=== PATIENT | female | born 1955 | race Hispanic/Latino ===

== ENCOUNTER 2017-10-22 09:33 | Emergency (ER) | payer BC ==
[~2017-10-22] VITALS: Ht 157.5 cm; Wt 64.9 kg
[2017-10-22] MEDS ORDERED: AMOXICILLIN/CLAVULANATE K 875 MG TAB PO STA (10:23)
[2017-10-22] MEDS ORDERED: DEXAMETHASONE SOD PHOS 10 MG/1 ML VIAL INJ ONE (10:30)
[2017-10-22 11:10] VITALS: BP 158/97
[2017-10-22] MEDS ORDERED: KETOROLAC TROMETHAMINE 10 MG TAB PO ONE (12:00)
== END 2017-10-22 11:32 | disposition home or self-care (01) ==
LOC: ER 09:33
DX: R50.9 Fever, unspecified (principal); J03.90 Acute tonsillitis, unspecified
CPT/HCPCS: 99283; J1100

== ENCOUNTER → 2017-12-14 | Outpatient (CLI) | payer BC ==
--- NOTE | 2017-12-14 09:17 | Diagnostic Imaging Report ---
PROCEDURE: X-RAY CHEST, TWO VIEWS COMPARISON: None. INDICATIONS: CHRONIC COUGH FINDINGS: LUNGS: No consolidations or edema. PLEURA: No effusions or pneumothorax. HEART \T\ MEDIASTINUM: The heart is within normal size-limits. BONES \T\ SOFT TISSUES: No acute findings. 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 CONCLUSION: No acute thoracic abnormality. Ryan Branch D.O. Dictated by: Ryan Branch D.O. on 12/14/2017 at 9:18 Electronically approved by: Ryan Branch D.O. on 12/14/2017 at 9:18
== END ==
LOC: RAD 08:36
PROVIDERS: ATTEND Family Medicine
DX: R05 Cough (principal)
CPT/HCPCS: 71046

== ENCOUNTER 2019-11-01 08:09 | Emergency (ER) | payer BC, OTHER ==
[~2019-11-01] VITALS: Ht 157.5 cm; Wt 64.9 kg
--- OUTSIDE RECORDS SUMMARY | 2019-11-01 08:12 | XMS REPORT ---
[facility] Address Unknown Phone Unavailable Care Team Providers Care Assessment Counselor Name Role Phone STEPHEN LOPEZ Unavailable Unavailable Problems This patient has no known problems. Allergies, Adverse Reactions, Alerts This patient has no known allergies or adverse reactions. Medications This patient has no known medications. Results Test Description Test Time Test Comments Text Results Atomic Results Result Comments CHEST 2 VIEWS [place] [address] Patient Name: XAVIER SMITH MR #: [id number] : 1955 Age/Sex: 62/F Req #: [id number] Adm Physician: Ordered by: JOHN RAZA, STEPHEN Molina MD Report #: [id number] Location: [facility] Room/Bed: Procedure: [id number] DX/CHEST 2 VIEWS Exam Date: 12/14/17 Exam Time: 0843 REPORT STATUS: Signed PROCEDURE: X-RAY CHEST, TWO VIEWS COMPARISON: None. INDICATIONS: CHRONIC COUGH FINDINGS: LUNGS: No consolidations or edema. PLEURA: No effusions or pneumothorax. HEART T MEDIASTINUM: The heart is within normal size-limits. BONES T SOFT TISSUES: No acute findings. 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 CONCLUSION: No acute thoracic abnormality. Lino Branch D.O. Dictated by: Lino Branch D.O. on 12/14/2017 at 9:18 Electronically approved by: Lino Branch D.O. on 12/14/2017 at 9:18 Dictated By: LINO BRANCH DO 7 Transcribed By: LARRY on 12/14/17917 COPY TO: STEPHEN LOPEZ
[2019-11-01] MEDS ORDERED: SODIUM CHLORIDE 0.9% 1000ML 1,000 ML IV STA (08:25)
[2019-11-01] MEDS ORDERED: PANTOPRAZOLE 40 MG 10ML VIAL IV STA (08:25)
[2019-11-01 09:01] LABS: BASOPHILS % 0.4 % (0.0-1.0); EOSINOPHILS % 0.2 % (0.0-6.0); HEMATOCRIT 42.9 % (34.2-44.1); HEMOGLOBIN 14.6 g/dL (12.0-16.0); LYMPHOCYTES # (AUTO) 1.2 (1.0-3.2); LYMPHOCYTES % 25.7 % (18.0-39.1); MEAN CORPUSCULAR HEMOGLOBIN 31.2 pg (28-32); MEAN CORPUSCULAR VOLUME 91.7 fL (81-99); MONOCYTES # (AUTO) 0.4 (0.2-0.8); MONOCYTES % 8.1 % (4.4-11.3); NEUTROPHILS # (AUTO) 2.9 (2.1-6.9); NEUTROPHILS % 65.4 % (38.7-80.0); PLATELET COUNT 200 x10e3/uL (140-360); RED BLOOD COUNT 4.68 x10e6/uL (3.6-5.1); RED CELL DISTRIBUTION WIDTH 12.4 % (11.7-14.4)
[2019-11-01 09:13] LABS: INR 0.9; PROTHROMBIN TIME 12.7 seconds (11.9-14.5)
[2019-11-01 09:14] LABS: PARTIAL THROMBOPLASTIN TIME 29.3 seconds (23.8-35.5)
[2019-11-01 09:19] LABS: INFLUENZAE A&B ANTIGEN (RAPID) NEGATIVE (NEGATIVE)
[2019-11-01 09:20] LABS: ALBUMIN 3.9 g/dL (3.5-5.0); CALCIUM 9.6 mg/dL (8.4-10.2); CREATININE, SERUM 1.11 mg/dL (0.57-1.11); MAGNESIUM 1.9 MG/DL (1.3-2.1)
[2019-11-01 09:27] LABS: CLARITY,URINE CLEAR (CLEAR); COLOR,URINE ORANGE (YELLOW); CREATINE KINASE MB 2.1 ng/mL (0-5.0); LEUKOCYTE ESTERASE ,URINE NEGATIVE (NEGATIVE)
[2019-11-01 09:28] LABS: BILIRUBIN,URINE NEGATIVE (NEGATIVE); KETONES,URINE NEGATIVE (NEGATIVE); NITRITE,URINE NEGATIVE (NEGATIVE); PROTEIN,URINE DIPSTICK 1+ (NEGATIVE); URINE UROBILINOGEN 0.2 mg/dL (0.2 - 1)
--- NOTE | 2019-11-01 09:28 | Diagnostic Imaging Report ---
EXAMINATION: CHEST 2 VIEWS INDICATION: Cough COMPARISON: Chest radiograph 12/14/2017 FINDINGS: LINES/TUBES:None LUNGS:The lungs are well-inflated. No focal consolidation or pulmonary edema. PLEURA:No pleural effusion or pneumothorax. MEDIASTINUM:The cardiomediastinal silhouette appears normal in size and shape. BONES/SOFT TISSUES:No acute osseous injury. ABDOMEN:No free air under the diaphragm. IMPRESSION: No focal pneumonia or pulmonary edema. Signed by: Mica Junior MD on 11/01/2019 9:25 AM
[2019-11-01 09:29] LABS: BACTERIA,URINE RARE /HPF; EPITHELIAL CELLS,URINE FEW /LPF; WBC,URINE (MAN) 21-50 /HPF (0-5)
[2019-11-01 09:34] LABS: STREPTOCOCCUS GRP A ANTIGEN NEGATIVE (NEGATIVE)
[2019-11-01] MEDS ORDERED: CEFTRIAXONE SOD 1 GM/NS 50 ML 50 ML IV ONE (10:00)
[2019-11-01 10:15] VITALS: BP 165/91
== END 2019-11-01 10:56 | disposition home or self-care (01) ==
LOC: ER 08:09
DX: R05 Cough (principal); N30.91 Cystitis, unspecified with hematuria
CPT/HCPCS: 36415; 71046; 80053; 81001; 82550; 82553; 83518; 83735; 84484; 85025; 85610; 85730; 87070; 87086; 87400; 93005; 99284; C9113; J0696; J7030

== ENCOUNTER 2022-11-03 15:12 | Emergency (ER) | payer BC, OTHER ==
[~2022-11-03] VITALS: Ht 157.5 cm; Wt 64.9 kg
[2022-11-03] MEDS ORDERED: SODIUM CHLORIDE 0.9% 1000ML 1,000 ML IV ONE (15:30)
[2022-11-03 15:39] LABS: BASOPHILS % 0.2 % (0.0-1.0); EOSINOPHILS % 0.4 % (0.0-6.0); HEMATOCRIT 40.4 % (34.2-44.1); HEMOGLOBIN 13.6 g/dL (12.0-16.0); LYMPHOCYTES # (AUTO) 1.3 (1.0-3.2); LYMPHOCYTES % 26.4 % (18.0-39.1); MEAN CORPUSCULAR HEMOGLOBIN 30.9 pg (28-32); MEAN CORPUSCULAR HGB CONC 33.7 g/dL (31-35); MEAN CORPUSCULAR VOLUME 91.8 fL (81-99); MONOCYTES # (AUTO) 0.4 (0.2-0.8); MONOCYTES % 7.4 % (4.4-11.3); NEUTROPHILS # (AUTO) 3.3 (2.1-6.9); NEUTROPHILS % 65.4 % (38.7-80.0); PLATELET COUNT 172 x10e3/uL (140-360); RED CELL DISTRIBUTION WIDTH 11.9 % (11.7-14.4)
[2022-11-03 15:57] LABS: ALBUMIN 3.8 g/dL (3.5-5.0); ANION GAP 15.6 mmol/L (8-16); CALCIUM 9.5 mg/dL (8.4-10.2); CREATININE, SERUM 1.3 mg/dL (0.57-1.11); POTASSIUM 3.6 mmol/L (3.5-5.1)
[2022-11-03 17:02] VITALS: BP 133/76
== END 2022-11-03 18:12 | disposition home or self-care (01) ==
LOC: ER 15:14
DX: R53.1 Weakness (principal); R42 Dizziness and giddiness; E11.65 Type 2 diabetes mellitus with hyperglycemia; F41.9 Anxiety disorder, unspecified; I34.1 Nonrheumatic mitral (valve) prolapse; Z87.19 Personal history of other diseases of the digestive system
CPT/HCPCS: 36415; 71045; 80053; 84484; 85025; 93005; 99284; J7030

== ENCOUNTER → 2024-01-14 | Outpatient (REF) | payer MEDICARE ==
[~2024-01-14] MED LIST: CEFDINIR300 MG PO
== END ==
LOC: US 09:56
PROVIDERS: ATTEND Urology
DX: R31.21 Asymptomatic microscopic hematuria (principal)
CPT/HCPCS: 74018; 76770

== ENCOUNTER 2024-05-03 08:15 | Inpatient (IN) | payer MEDICARE ==
[2024-05-02 11:17] LABS: BASOPHILS % 0.3 % (0.0-1.0); EOSINOPHILS # (AUTO) 0.1 (0.0-0.4); EOSINOPHILS % 1.3 % (0.0-6.0); HEMATOCRIT 44.2 % (34.2-44.1); HEMOGLOBIN 14.4 g/dL (12.0-16.0); LYMPHOCYTES % 26.9 % (18.0-39.1); MEAN CORPUSCULAR HEMOGLOBIN 30.9 pg (28-32); MEAN CORPUSCULAR HGB CONC 32.6 g/dL (31-35); MEAN CORPUSCULAR VOLUME 94.8 fL (81-99); MONOCYTES # (AUTO) 0.4 (0.2-0.8); MONOCYTES % 10.1 % (4.4-11.3); NEUTROPHILS # (AUTO) 2.4 (2.1-6.9); NEUTROPHILS % 61.1 % (38.7-80.0); PLATELET COUNT 157 x10e3/uL (140-360); RED BLOOD COUNT 4.66 x10e6/uL (3.6-5.1); WHITE BLOOD COUNT 3.86 x10e3/uL (4.8-10.8)
[2024-05-02 11:49] LABS: ANION GAP 12.2 mmol/L (8-16); CALCIUM 9.8 mg/dL (8.4-10.2); CREATININE, SERUM 0.98 mg/dL (0.57-1.11); POTASSIUM 4.2 mmol/L (3.5-5.1)
[~2024-05-03] VITALS: Ht 157.5 cm; Wt 61.2 kg
[~2024-05-03 08:15] MED LIST changes: +METOPROLOL SUCC25 MG PO; +PRAVASTATIN SOD20 MG PO
[2024-05-03] MEDS ORDERED: METHYLENE BLUE 1% INJ 10 ML VIAL INJ ONE (10:02)
[2024-05-03] MEDS ORDERED: BUPIVACAINE HCL 0.5% INJ 30 ML VIAL INJ ONE (10:02)
[2024-05-03] MEDS ORDERED: LIDOCAINE 1% W/EPINEPHRINE 20 ML VIAL ONE (10:02)
[2024-05-03] MEDS ORDERED: BACITRACIN ZINC 15 GM OINT ONE (10:02)
[2024-05-03] MEDS ORDERED: GENTAMICIN SULFATE 40 MG/ML 2 ML VIAL ONE (10:02)
[2024-05-03] MEDS: GENTAMICIN 80MG/NS 100 ML 200 ML IV ONE (10:25)
[2024-05-03] MEDS: PIPERACILLIN/TAZOBACTAM 3.375 GM VIAL ONE (10:25)
[2024-05-03] MEDS: CLINDAMYCIN 600MG / 50ML 50 ML IV ONE (10:25)
[2024-05-03] MEDS: LACTATED RINGER'S 1,000 ML ONE (10:25)
[2024-05-03] MEDS ORDERED: DIPHENHYDRAMINE HCL 25 MG CAP PO PRN (11:15)
[2024-05-03] MEDS ORDERED: PHENAZOPYRIDINE HCL 100 MG TAB PO PRN (11:15)
[2024-05-03] MEDS ORDERED: ACETAMINOPHEN 1000 MG/100 ML IV PRN (11:15)
[2024-05-03] MEDS ORDERED: ONDANSETRON HCL INJ 2MG/ML 2ML 2 MG/ML VIAL IV PRN (11:15)
[2024-05-03] MEDS ORDERED: LIDOCAINE HCL 2% LOCAL INJ 5 ML SDV VIAL INJ ONE (12:12)
[2024-05-03] MEDS ORDERED: PROPOFOL IV EMULSION 10 MG/ML 20 ML VIAL ONE (12:12)
[2024-05-03] MEDS ORDERED: EPHEDRINE SULFATE INJ 50 MG/ML VIAL ONE (12:12)
[2024-05-03] MEDS ORDERED: ACETAMINOPHEN 1000 MG/100 ML IV ONE (12:12)
[2024-05-03] MEDS ORDERED: DEXAMETHASONE SOD PHOS INJ 4 MG/ML SDV ONE (12:12)
[2024-05-03] MEDS ORDERED: ONDANSETRON HCL INJ 2MG/ML 2ML 2 MG/ML VIAL ONE (12:12)
[2024-05-03] MEDS ORDERED: SEVOFLURANE INHAL SOLN 250 ML PEN BTL ONE (12:12)
[2024-05-03] MEDS ORDERED: FENTANYL CITRATE/PF 100MCG/2 ML INJ ONE (12:44)
[2024-05-03] MEDS ORDERED: MIDAZOLAM HCL 2 MG/2 ML VIAL ONE (12:44)
[2024-05-03 13:56] LABS: BASOPHILS % 0.2 % (0.0-1.0); EOSINOPHILS % 0.7 % (0.0-6.0); HEMATOCRIT 42.2 % (34.2-44.1); HEMOGLOBIN 13.3 g/dL (12.0-16.0); LYMPHOCYTES # (AUTO) 0.9 (1.0-3.2); LYMPHOCYTES % 20.9 % (18.0-39.1); MEAN CORPUSCULAR HEMOGLOBIN 30.4 pg (28-32); MEAN CORPUSCULAR HGB CONC 31.5 g/dL (31-35); MEAN CORPUSCULAR VOLUME 96.6 fL (81-99); MONOCYTES # (AUTO) 0.1 (0.2-0.8); MONOCYTES % 2.7 % (4.4-11.3); NEUTROPHILS # (AUTO) 3.3 (2.1-6.9); PLATELET COUNT 142 x10e3/uL (140-360); RED BLOOD COUNT 4.37 x10e6/uL (3.6-5.1); RED CELL DISTRIBUTION WIDTH 11.9 % (11.7-14.4); WHITE BLOOD COUNT 4.41 x10e3/uL (4.8-10.8)
[2024-05-03 14:06] LABS: ANION GAP 11.9 mmol/L (8-16); CREATININE, SERUM 0.92 mg/dL (0.57-1.11); POTASSIUM 3.9 mmol/L (3.5-5.1)
[2024-05-03 14:30] VITALS: BP 117/69; PULSE 57; RESP 18; TEMP 97.4; O2SAT 99
[2024-05-03 15:28] VITALS: PULSE 72; RESP 20; O2SAT 98
[2024-05-03 16:51] VITALS: BP 110/56; PULSE 61; RESP 17; TEMP 97.2; O2SAT 98
[2024-05-03] MEDS: D5.45%NS/KCL 20MEQ 1,000 ML IV SCH (16:52)
[2024-05-03] MEDS: ACETAMINOPHEN/CODEINE 300MG - 30MG TAB PO PRN (17:01)
[2024-05-03 20:00] VITALS: BP 98/49; PULSE 69; RESP 20; TEMP 97.5; O2SAT 99
[2024-05-03 20:45] VITALS: PULSE 72; RESP 8; O2SAT 96
[2024-05-04] VITALS (10 sets, daily range): BP systolic 98–112; BP diastolic 42–52; PULSE 56–74; RESP 18–19; TEMP 97.8–98.3; O2SAT 94–100
[2024-05-04 06:12] LABS: HEMATOCRIT 34.8 % (34.2-44.1); HEMOGLOBIN 11.1 g/dL (12.0-16.0); LYMPHOCYTES # (AUTO) 0.9 (1.0-3.2); MEAN CORPUSCULAR HEMOGLOBIN 30.5 pg (28-32); MEAN CORPUSCULAR HGB CONC 31.9 g/dL (31-35); MEAN CORPUSCULAR VOLUME 95.6 fL (81-99); MONOCYTES # (AUTO) 0.8 (0.2-0.8); MONOCYTES % 9.6 % (4.4-11.3); NEUTROPHILS # (AUTO) 6.7 (2.1-6.9); NEUTROPHILS % 79.2 % (38.7-80.0); PLATELET COUNT 150 x10e3/uL (140-360); RED BLOOD COUNT 3.64 x10e6/uL (3.6-5.1); RED CELL DISTRIBUTION WIDTH 11.8 % (11.7-14.4); WHITE BLOOD COUNT 8.47 x10e3/uL (4.8-10.8)
[2024-05-04 06:59] LABS: BLOOD UREA NITROGEN < 5 mg/dL (7-26); CREATININE, SERUM 0.86 mg/dL (0.57-1.11); EST GLOMERULAR FILTRATION RATE 74 ML/MIN (>=60); GLUCOSE 139 mg/dL (74-118)
[2024-05-04 07:11] LABS: BUN/CREATININE RATIO 6 (6-25)
[2024-05-04 08:55] LABS: CALCIUM 9.1 mg/dL (8.4-10.2); CHLORIDE 108 mmol/L (98-107); POTASSIUM 4.1 mmol/L (3.5-5.1); SODIUM 135 mmol/L (136-145)
[2024-05-04 10:24] LABS: CARBON DIOXIDE 20 mmol/L (22-29)
[2024-05-04 10:27] LABS: ANION GAP 11.1 mmol/L (8-16)
[2024-05-04] MEDS: SODIUM CHLORIDE 0.9% 1000ML 1,000 ML IV SCH (10:45)
[2024-05-04] MEDS: MELATONIN 5 MG TABLET PO SCH (21:25)
[2024-05-05] VITALS (10 sets, daily range): BP systolic 96–151; BP diastolic 46–83; PULSE 57–82; RESP 16–18; TEMP 97.7–98.9; O2SAT 97–100
[2024-05-05 05:55] LABS: BASOPHILS % 0.4 % (0.0-1.0); EOSINOPHILS # (AUTO) 0.1 (0.0-0.4); HEMATOCRIT 33.1 % (34.2-44.1); HEMOGLOBIN 10.8 g/dL (12.0-16.0); LYMPHOCYTES # (AUTO) 1.5 (1.0-3.2); LYMPHOCYTES % 29.8 % (18.0-39.1); MEAN CORPUSCULAR HEMOGLOBIN 31.5 pg (28-32); MEAN CORPUSCULAR HGB CONC 32.6 g/dL (31-35); MEAN CORPUSCULAR VOLUME 96.5 fL (81-99); MONOCYTES # (AUTO) 0.6 (0.2-0.8); MONOCYTES % 11.2 % (4.4-11.3); NEUTROPHILS # (AUTO) 2.9 (2.1-6.9); NEUTROPHILS % 57.2 % (38.7-80.0); PLATELET COUNT 141 x10e3/uL (140-360); RED BLOOD COUNT 3.43 x10e6/uL (3.6-5.1); RED CELL DISTRIBUTION WIDTH 12.6 % (11.7-14.4)
[2024-05-05 07:20] LABS: CREATININE, SERUM 0.99 mg/dL (0.57-1.11)
[2024-05-05] MEDS: METOPROLOL SUCCINATE 25 MG TAB XL PO SCH (09:21)
[2024-05-05 15:11] LABS: CALCIUM 8.9 mg/dL (8.4-10.2); POTASSIUM 4.6 mmol/L (3.5-5.1)
[2024-05-05 15:12] LABS: ANION GAP 12.6 mmol/L (8-16)
[2024-05-06] VITALS: BP 107/54; PULSE 56; RESP 16; TEMP 98.2; O2SAT 100
[2024-05-06 05:12] VITALS: BP 131/77; PULSE 67; RESP 18; TEMP 98.6; O2SAT 97
[2024-05-06 05:46] LABS: BASOPHILS % 0.4 % (0.0-1.0); EOSINOPHILS # (AUTO) 0.2 (0.0-0.4); EOSINOPHILS % 3.3 % (0.0-6.0); LYMPHOCYTES # (AUTO) 1.4 (1.0-3.2); LYMPHOCYTES % 30.2 % (18.0-39.1); MEAN CORPUSCULAR HEMOGLOBIN 31.2 pg (28-32); MEAN CORPUSCULAR HGB CONC 32.4 g/dL (31-35); MEAN CORPUSCULAR VOLUME 96.3 fL (81-99); MONOCYTES # (AUTO) 0.5 (0.2-0.8); MONOCYTES % 11.7 % (4.4-11.3); NEUTROPHILS # (AUTO) 2.5 (2.1-6.9); NEUTROPHILS % 54.2 % (38.7-80.0); PLATELET COUNT 144 x10e3/uL (140-360); RED BLOOD COUNT 3.53 x10e6/uL (3.6-5.1); RED CELL DISTRIBUTION WIDTH 12.4 % (11.7-14.4); WHITE BLOOD COUNT 4.53 x10e3/uL (4.8-10.8)
[2024-05-06 06:22] LABS: CALCIUM 10.5 mg/dL (8.4-10.2); CREATININE, SERUM 1.04 mg/dL (0.57-1.11)
[2024-05-06 06:38] VITALS: PULSE 72; RESP 20; O2SAT 98
[2024-05-06 07:25] LABS: POTASSIUM 4.9 mmol/L (3.5-5.1)
[2024-05-06 08:28] VITALS: BP 112/49; PULSE 54; RESP 18; TEMP 97.6; O2SAT 97
[2024-05-06 08:53] VITALS: BP 112/49; PULSE 54; RESP 18; TEMP 97.6; O2SAT 97
[2024-05-06 09:29] LABS: ANION GAP 11.9 mmol/L (8-16)
[2024-05-06 12:00] VITALS: BP 129/75; PULSE 63; RESP 20; TEMP 97.6; O2SAT 98
== END 2024-05-06 11:55 | disposition home or self-care (01) | DRG 748 ==
LOC: OR 08:15 → PACU V 11:14 → MED/SURG2 14:30
PROVIDERS: ADMIT Urology; ATTEND Urology
PROC: 0JUC0KZ Supplement of Pelvic Region Subcutaneous Tissue and Fascia with Nonautologous Tissue Substitute, Open Approach (ICD-10-PCS; 2024-05-03)
PROC: 0TSD0ZZ Reposition Urethra, Open Approach (ICD-10-PCS; 2024-05-03)
PROC: 0T788ZZ Dilation of Bilateral Ureters, Via Natural or Artificial Opening Endoscopic (ICD-10-PCS; 2024-05-03)
PROC: BT141ZZ Fluoroscopy of Kidneys, Ureters and Bladder using Low Osmolar Contrast (ICD-10-PCS; 2024-05-03)
PROC: BT101ZZ Fluoroscopy of Bladder using Low Osmolar Contrast (ICD-10-PCS; 2024-05-03)
PROC: 0TND0ZZ Release Urethra, Open Approach (ICD-10-PCS; principal; 2024-05-03 11:04)
DX: N81.10 Cystocele, unspecified (principal); N39.46 Mixed incontinence; N32.0 Bladder-neck obstruction; R33.9 Retention of urine, unspecified; N32.81 Overactive bladder; N95.2 Postmenopausal atrophic vaginitis; Z87.440 Personal history of urinary (tract) infections; I10 Essential (primary) hypertension; F41.9 Anxiety disorder, unspecified; F32.A Depression, unspecified; D64.9 Anemia, unspecified; E78.5 Hyperlipidemia, unspecified; Z79.899 Other long term (current) drug therapy
CPT/HCPCS: 36415; 74420; 80048; 83735; 85025; 93005; 94799; C1758; C1762; J1100; J1580; J2001; J2250; J2405; J2543; J7030